=== PATIENT | female | born 1950 | race Two or more races ===

== ENCOUNTER 2017-09-15 10:09 | Outpatient (CLI) | payer OTHER | END 2017-09-15 10:13 | disposition home or self-care (01) | LOC: MAMO-SONO 10:09 | DX: Z12.31 Encounter for screening mammogram for malignant neoplasm of breast (principal); Z87.898 Personal history of other specified conditions; N63.10 Unspecified lump in the right breast, unspecified quadrant; N63.20 Unspecified lump in the left breast, unspecified quadrant ==

== ENCOUNTER 2019-03-09 10:53 | Outpatient (CLI) | payer OTHER | END 2019-03-09 11:02 | disposition home or self-care (01) | LOC: MAMO-SONO 10:53 | DX: Z12.31 Encounter for screening mammogram for malignant neoplasm of breast (principal); Z87.898 Personal history of other specified conditions ==